=== PATIENT | female | born 1940 | race Two or more races ===

== ENCOUNTER → 2018-12-29 | Outpatient (CLI) | payer OTHER ==
[~2018-12-29] MED LIST: ACIPHEX20 MG PO; ALTACE10 MG; HUMALOG100 U/ML; HYDROCHLOROTHIA25 MG; KLONOPIN2 MG/TAB; NEURONTIN300 MG; PLAVIX75 MG
== END | disposition home or self-care (01) ==
LOC: NUCLEAR 14:30
DX: M81.0 Age-related osteoporosis without current pathological fracture (principal)

== ENCOUNTER 2019-04-20 13:43 | Inpatient (IN) | payer OTHER ==
[~2019-04-20] VITALS: Ht 162.6 cm; Wt 92.5 kg
[2019-04-20] MEDS ORDERED: PEPCID AC20 MG (14:11)
== END 2019-04-27 19:21 | disposition home or self-care (01) | DRG 203 ==
LOC: ER 13:43 → MEDJ 19:47
PROVIDERS: ADMIT Internal Medicine Cardiovascular Disease
PROC: 4A033R1 Measurement of Arterial Saturation, Peripheral, Percutaneous Approach (ICD-10-PCS; principal; 2019-04-20)
PROC: 3E0F7GC Introduction of Other Therapeutic Substance into Respiratory Tract, Via Natural or Artificial Opening (ICD-10-PCS; 2019-04-20)
DX: J45.901 Unspecified asthma with (acute) exacerbation (principal); J45.902 Unspecified asthma with status asthmaticus; I10 Essential (primary) hypertension; E11.9 Type 2 diabetes mellitus without complications

== ENCOUNTER 2019-05-22 11:37 | Outpatient (CLI) | payer OTHER ==
[~2019-05-22 11:37] MED LIST changes: +PEPCID AC20 MG
== END 2019-05-22 11:40 | disposition home or self-care (01) ==
LOC: RAD 11:37
DX: M19.90 Unspecified osteoarthritis, unspecified site (principal)

== ENCOUNTER 2019-07-26 14:55 | Inpatient (IN) | payer OTHER ==
[~2019-07-26] VITALS: Ht 162.6 cm; Wt 94.3 kg
== END 2019-08-02 10:36 | disposition home or self-care (01) | DRG 202 ==
LOC: MEDJ 14:55
PROVIDERS: ADMIT Internal Medicine Cardiovascular Disease
PROC: 3E0F7GC Introduction of Other Therapeutic Substance into Respiratory Tract, Via Natural or Artificial Opening (ICD-10-PCS; principal; 2019-07-26)
PROC: 4A033R1 Measurement of Arterial Saturation, Peripheral, Percutaneous Approach (ICD-10-PCS; 2019-07-26)
DX: J45.42 Moderate persistent asthma with status asthmaticus (principal); J44.1 Chronic obstructive pulmonary disease with (acute) exacerbation; I25.810 Atherosclerosis of coronary artery bypass graft(s) without angina pectoris; I70.0 Atherosclerosis of aorta; I10 Essential (primary) hypertension; E11.40 Type 2 diabetes mellitus with diabetic neuropathy, unspecified; Z79.4 Long term (current) use of insulin

== ENCOUNTER → 2021-08-13 | Outpatient (CLI) | payer OTHER | END | disposition home or self-care (01) | LOC: NUCLEAR 08:04 | PROVIDERS: ATTEND Internal Medicine Cardiovascular Disease | DX: G45.9 Transient cerebral ischemic attack, unspecified (principal); E11.9 Type 2 diabetes mellitus without complications; I10 Essential (primary) hypertension ==